=== PATIENT | female | born 1950 | race Caucasian/White ===

== ENCOUNTER 2017-08-15 08:22 | Day surgery (SDC) | payer OTHER ==
[2017-08-15] MEDS ORDERED: Ketorolac 30 MG/ML SDV IVPUSH ONE (08:23)
[2017-08-15] MEDS ORDERED: Glycopyrrolate 0.2 MG/ML 2 ML SDV IV ONE (08:23)
[2017-08-15] MEDS ORDERED: Rocuronium 50 MG/5 ML Vial IV ONE (08:23)
[2017-08-15] MEDS ORDERED: Ondansetron 4 MG/2 ML SDV IV ONE (08:23)
[2017-08-15] MEDS ORDERED: fentaNYL 100 MCG/2 ML SDV IV ONE (08:23)
[2017-08-15] MEDS ORDERED: Propofol 200 MG/20 ML SDV IV ONE (08:23)
[2017-08-15] MEDS ORDERED: Midazolam 1 MG/ML 2 ML SDV IV ONE (08:23)
[2017-08-15] MEDS ORDERED: Neostigmine Methylsulfate 10 MG/10 ML MDV IV ONE (08:23)
[2017-08-15] MEDS ORDERED: Lactated Ringers 1,000 ML IV SCH (08:45)
[2017-08-15] MEDS ORDERED: Morphine 2 MG/ML Syringe IVPUSH PRN (11:16)
[2017-08-15] MEDS ORDERED: Acetaminophen/oxyCODONE 325-5 MG Tab PO PRN (11:16)
[2017-08-15] MEDS ORDERED: Sodium Chloride 0.9% 10 ML Syringe FLUSH PRN (11:17)
[2017-08-15 14:50] VITALS: BP 132/62
--- NOTE | 2017-08-15 17:59 | PCM.SN ---
- Free Text/Narrative Note: Patient is stable after Laparoscopic cholecystectomy earlier today. Pain well controlled. PO adequate. Wounds clean. Requesting to go home. From my standpoint she is able to leave. Percocet 5/325 tabs #20 were given for pain. Will FU as needed.
--- NOTE | 2017-08-15 20:49 | OR ---
DATE: 08/15/2017 PREOPERATIVE DIAGNOSIS: Chronic cholecystitis, cholelithiasis. POSTOPERATIVE DIAGNOSIS: Chronic cholecystitis, cholelithiasis. PROCEDURE: Laparoscopic cholecystectomy ANESTHESIA: General. ESTIMATED BLOOD LOSS: Minimum. SPECIMEN: Gallbladder. INDICATION FOR PROCEDURE: This 67-year-old female has had several episodes of right upper quadrant abdominal pain and has recently had an ultrasound that demonstrated a diseased gallbladder with multiple stones. The ultrasound is otherwise unremarkable. DESCRIPTION OF PROCEDURE: After adequate preparation, a trocar was placed in the midclavicular line on the right side secondary to her having a section with a midline scar up to and including the umbilicus. This trocar site was used to insufflate the abdomen. A 5-mm camera was then placed within the abdomen. This did not show any adhesions around the umbilical area. A 2nd 5-mm trocar was placed in that area. Two other trocars were placed under direct vision without difficulty. The gallbladder was identified. This was non-thick, but did have a moderate amount of adhesions of the omentum around the gallbladder and also had a moderate amount of adhesions down around the Maverick pouch and cystic triangle structures. The cystic triangle was eventually dissected completely free to identify the cystic duct and cystic artery separately. A clip commercial carpenter was used to triply clip the cystic duct and then transect this. The artery was then transected and the proximal end was bovied for hemostatic control. The gallbladder was then taken off the liver bed using a blunt, sharp, and Bovie dissection. There was no evidence of perforation of the gallbladder and only minimal bleeding from the gallbladder bed. The right upper quadrant was then irrigated with saline and suctioned clear. The gallbladder was placed within the retrieval bag and brought out through the epigastric trocar site. This fascial defect was then re-closed using an 0 Vicryl suture. The abdomen was desufflated. The trocars were removed and the skin closed with Monocryl. The patient was taken to recovery room in good condition. [facility] /[id number]
== END 2017-08-15 16:20 | disposition home or self-care (01) ==
LOC: DL.SDS 08:22 → EDSTATUS 10:00 → DL.SDS 16:20
PROVIDERS: ATTEND Surgery
DX: K81.1 Chronic cholecystitis (principal); F41.8 Other specified anxiety disorders; E11.9 Type 2 diabetes mellitus without complications; E78.5 Hyperlipidemia, unspecified; K21.9 Gastro-esophageal reflux disease without esophagitis; I10 Essential (primary) hypertension; Z88.1 Allergy status to other antibiotic agents; Z88.8 Allergy status to other drugs, medicaments and biological substances; Z87.891 Personal history of nicotine dependence
CPT/HCPCS: 82962; A9270-GY; J1885; J2250; J2405; J2704; J2710; J3010; J3490; J7120

== ENCOUNTER 2021-03-06 03:01 | Emergency (ER) | payer MEDICARE, OTHER ==
[2021-03-06] MEDS ORDERED: Benzonatate 100 MG Cap PO ONE (03:02)
[2021-03-06 04:12] LABS: CORONAVIRUS COVID-19 NAA POSITIVE (NEGATIVE)
[2021-03-06 04:37] VITALS: PULSE 88
[2021-03-06 05:21] LABS: ANION GAP 15.2 mEq/L (7-13); CHLORIDE,CL 100 mmol/L (98-107); SODIUM,NA 138 mmol/L (136-145)
[2021-03-06] MEDS ORDERED: Azithromycin 250 MG Tab PO ONE (05:23)
[2021-03-06] MEDS ORDERED: Polymyxin B/Trimethoprim 10 ML Bottle ONE (06:00)
[2021-03-06] MEDS ORDERED: Benzonatate 100 MG Cap ONE (06:00)
--- NOTE | 2021-03-06 06:11 | CR ---
PROCEDURE INFORMATION: Exam: XR Chest Exam date and time: 03/06/2021 5:31 AM Age: 70 years old Clinical indication: Other: Initial dx late January, not improving; Additional info: Covid TECHNIQUE: Imaging protocol: XR of the chest. Views: 1 view. COMPARISON: CR CHEST PA/LAT 12/06/2010 11:08 AM FINDINGS: Lungs: Subtle increased interstitial markings are seen in the mid and lower hemithoraces suggesting a mild bilateral interstitial pneumonitis. Pleural spaces: Unremarkable. No pleural effusion. No pneumothorax. Heart/Mediastinum: Unremarkable. No cardiomegaly. Bones/joints: Unremarkable. IMPRESSION: Subtle increased interstitial markings in the left mid and lower hemithoraces suggest a mild bilateral interstitial pneumonitis.
--- NOTE | 2021-03-06 06:14 | EDM.PDOC ---
ED HPI GENERAL MEDICAL PROBLEM - General Chief Complaint: ENT Problem Stated Complaint: 97.2*, CONGESTED, RIGHT EYE SWALLON, BOTH EARS Time Seen by Provider: 03/06/21 03:30 Source of Information: Reports: Patient History Limitations: Reports: No Limitations - History of Present Illness INITIAL COMMENTS - FREE TEXT/NARRATIVE: ED with c/o continued cough right ear pain and tonight woke with discharge and irritation right eye. Diagnosed with COVID in January. Has fatigue. Blood sugars up and down, Poor appetite. Admits some depression, stress reaction due to recent loss of son and grandson in car accident. Not sleeping, unsure if anxiety/stress or from coughing. Has tried muccinex. Cough productive green phlegm Right Eye Pain Score (Numeric/FACES): 4 - Related Data Allergies Allergy/AdvReac Type Severity Reaction Status Date / Time cephalexin Allergy Swelling Verified 03/06/21 03:33 Jnnraeo-AYE-YoV Reductase Allergy Muscle Verified 03/06/21 03:33 Inhibitor Aches [Ulaimmt-Zzc-Kmo Reductase Inhibitor] Home Meds: Home Meds Hydrochlorothiazide/Lisinopril [Lisinopril/HCTZ 20-12.5 MG] 1.5 tab PO DAILY 01/05/16 [History] Insulin Aspart [NovoLOG] 8 - 12 units SUBCUT TID 01/05/16 [History] Pen Needle, Diabetic [Ultra-Fine Cristy Pen Needle] 1 unit SQ QID 01/05/16 [History] Sertraline [Zoloft] 25 mg PO DAILY 01/05/16 [History] metFORMIN HCl [Metformin HCl] 1,000 mg PO BID 01/05/16 [History] Aspirin [Ecotrin EC] 1 tab PO DAILY 08/14/17 [History] Insulin Detemir [Levemir] 45 units SQ BEDTIME 08/14/17 [History] Omeprazole 1 tab PO DAILY 08/14/17 [History] Potassium 1 tab PO DAILY 08/14/17 [History] amLODIPine [Norvasc] 03/06/21 [History] Past Medical History HEENT History: Reports: None Cardiovascular History: Reports: High Cholesterol, Hypertension Respiratory History: Reports: None Gastrointestinal History: Reports: GERD Genitourinary History: Reports: None 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: , Spontaneous Musculoskeletal History: Reports: None Neurological History: Reports: Migraines Psychiatric History: Reports: Depression Endocrine/Metabolic History: Reports: Diabetes, Type II Hematologic History: Reports: Anemia Immunologic History: Reports: None Oncologic (Cancer) History: Reports: None Dermatologic History: Reports: None - Infectious Disease History Infectious Disease History: Reports: Chicken Pox, Measles, Mumps - Past Surgical History Head Surgeries/Procedures: Reports: None HEENT Surgical History: Reports: Cataract Surgery Cardiovascular Surgical History: Reports: None GI Surgical History: Reports: Colonoscopy Female Surgical History: Reports: Breast Biopsy, Section, D&C, Tubal Ligation Neurological Surgical History: Reports: None Musculoskeletal Surgical History: Reports: None Social & Family History - Family History Family Medical History: No Pertinent Family History - Tobacco Use Tobacco Use Status *Q: Never Tobacco User - Caffeine Use Caffeine Use: Reports: Soda Caffeine Use Comment: 1 can daily - Recreational Drug Use Recreational Drug Use: No ED ROS GENERAL - Review of Systems Review Of Systems: Comprehensive ROS is negative, except as noted in HPI. ED EXAM, GENERAL - Physical Exam Exam: See Below Exam Limited By: No Limitations General Appearance: Alert, Mild Distress Eye Exam: Bilateral Eye: Conjunctival Injection (greater right with yellow purulent discharge), EOMI, PERRL Ears: Normal External Exam. No: Normal TMs (fluid right) Nose: Normal Inspection Throat/Mouth: Normal Inspection Head: Atraumatic, Normocephalic Neck: Normal Inspection Respiratory/Chest: No Respiratory Distress, Decreased Breath Sounds, Other (coarse loose cough) Cardiovascular: Normal Peripheral Pulses, Regular Rate, Rhythm GI/Abdominal: Normal Bowel Sounds, Soft Extremities: Normal Inspection, Normal Range of Motion Neurological: Alert, Oriented, Normal Cognition Psychiatric: Tearful Skin Exam: Warm, Dry, Intact, Normal Color Course - Vital Signs Last Recorded V/S: Last Vital Signs Temp 98 F 03/06/21 04:36 Pulse 88 03/06/21 04:36 Resp 20 03/06/21 04:36 BP 160/68 H 03/06/21 04:36 Pulse Ox 95 03/06/21 04:36 - Orders/Labs/Meds Orders: Active Orders 24 hr Category Date Time Status PH,VENOUS [BG] Stat Lab 03/06/21 04:34 Ordered Labs: Laboratory Tests 03/06/21 03/06/21 03/06/21 Range/Units 03:20 04:50 04:50 WBC 9.9 (5.0-10.0) 10^3/uL RBC 3.97 L (4.2-5.4) 10^6/uL Hgb 11.9 L (12.0-16.0) g/dL Hct 35.8 L (37.0-47.0) % MCV 90.2 D (80-100) fL MCH 30.0 (27.0-34.0) pg MCHC 33.2 (33.0-35.0) g/dL Plt Count 237 (150-450) 10^3/uL Neut % (Auto) 69.3 (42.2-75.2) % Lymph % (Auto) 15.1 L (20.5-50.1) % Sequoyah % (Auto) 9.8 H (2-8) % Eos % (Auto) 5.1 H (1.0-3.0) % Baso % (Auto) 0.7 (0.0-1.0) % D-Dimer, Quantitative 402 H (0-400) ng/mL Sodium (136-145) mmol/L Potassium (3.5-5.1) mmol/L Chloride (98-107) mmol/L Carbon Dioxide (21-32) mmol/L Anion Gap (7-13) mEq/L BUN (7-18) mg/dL Creatinine (0.55-1.02) mg/dL Est Cr Clr Drug Dosing Estimated GFR (MDRD) BUN/Creatinine Ratio (No establ ref range) Glucose (70-99) mg/dL Lactic Acid (0.4-2.0) mmol/L Calcium (8.5-10.1) mg/dL Total Bilirubin (0.2-1.0) mg/dL AST (15-37) U/L ALT (14-59) U/L Alkaline Phosphatase (46-116) U/L C-Reactive Protein (0.0-0.9) mg/dL Total Protein (6.4-8.2) g/dL Albumin (3.4-5.0) g/dL Globulin Albumin/Globulin Ratio Ketones Influenza Type A RNA Negative (NEGATIVE) Influenza Type B RNA Negative (NEGATIVE) SARS-CoV-2 RNA (JOSE) Positive H (NEGATIVE) 03/06/21 03/06/21 Range/Units 04:50 04:50 WBC (5.0-10.0) 10^3/uL RBC (4.2-5.4) 10^6/uL Hgb (12.0-16.0) g/dL Hct (37.0-47.0) % MCV (80-100) fL MCH (27.0-34.0) pg MCHC (33.0-35.0) g/dL Plt Count (150-450) 10^3/uL Neut % (Auto) (42.2-75.2) % Lymph % (Auto) (20.5-50.1) % Sequoyah % (Auto) (2-8) % Eos % (Auto) (1.0-3.0) % Baso % (Auto) (0.0-1.0) % D-Dimer, Quantitative (0-400) ng/mL Sodium 138 (136-145) mmol/L Potassium 4.2 (3.5-5.1) mmol/L Chloride 100 (98-107) mmol/L Carbon Dioxide 27 (21-32) mmol/L Anion Gap 15.2 H (7-13) mEq/L BUN 11 (7-18) mg/dL Creatinine 0.82 (0.55-1.02) mg/dL Est Cr Clr Drug Dosing TNP Estimated GFR (MDRD) > 60 BUN/Creatinine Ratio 13.4 (No establ ref range) Glucose 238 H (70-99) mg/dL Lactic Acid 1.4 (0.4-2.0) mmol/L Calcium 8.4 L (8.5-10.1) mg/dL Total Bilirubin 0.4 (0.2-1.0) mg/dL AST 14 L (15-37) U/L ALT 26 (14-59) U/L Alkaline Phosphatase 75 (46-116) U/L C-Reactive Protein 4.3 H (0.0-0.9) mg/dL Total Protein 6.7 (6.4-8.2) g/dL Albumin 3.1 L (3.4-5.0) g/dL Globulin 3.6 Albumin/Globulin Ratio 0.86 Ketones Negative Influenza Type A RNA (NEGATIVE) Influenza Type B RNA (NEGATIVE) SARS-CoV-2 RNA (JOSE) (NEGATIVE) Meds: Medications Discontinued Medications Generic Name Dose Route Start Last Admin Trade Name Freq PRN Reason Stop Dose Admin Azithromycin 500 mg 03/06/21 05:23 03/06/21 05:40 Azithromycin 250 Mg Tab PO 03/06/21 05:24 500 mg ONETIME ONE Administration Benzonatate Confirm 03/06/21 06:00 Benzonatate 100 Mg Cap Administered 03/06/21 06:01 Dose 200 mg .ROUTE .STK-MED ONE Polymyxin/Trimethoprim Sulfate Confirm 03/06/21 06:00 Polymyxin B/Trimethoprim 10 Ml Bottle Administered 03/06/21 06:01 Dose 10 ml .ROUTE .STK-MED ONE Departure - Departure Time of Disposition: 06:09 Disposition: Home, Self-Care 01 Condition: Good Clinical Impression: Hyperglycemia, COVID-19, Grief Conjunctivitis Qualifiers: Conjunctivitis type: acute Acute conjunctivitis type: unspecified Laterality: bilateral Qualified Code(s): H10.33 - Unspecified acute conjunctivitis, bilateral - Discharge Information *PRESCRIPTION DRUG MONITORING PROGRAM REVIEWED*: No *COPY OF PRESCRIPTION DRUG MONITORING REPORT IN PATIENT NORBERT: No Instructions: COVID-19 Vaccine Information, 10 Things You Can Do to Manage Your COVID-19 Symptoms at Home - [facility] (11/20/2020) Forms: ED Department Discharge Additional Instructions: polytrim eye drops 2 drops to each eye 4 times daily for 5 days tessalon pearles 200mg every 8 hours as needed for cough Azithromycin 250mg one daily for 4 days phenergan with codeine 5ml every 6 hours as needed for severe cough symptoms izofran 4mg ODT one every 4 hours as needed for nsusea increase fluids continue muccinex humidification gently wipe eyes inner to outer clinic follow up next week Sepsis Event Note (ED) - Focused Exam Vital Signs: Vital Signs Temp Pulse Resp BP BP Pulse Ox 03/06/21 04:36 98 F 88 20 160/68 H 95 03/06/21 03:15 98.9 F 92 22 H 172/109 H 96 - My Orders Last 24 Hours: My Active Orders 03/06/21 04:34 PH,VENOUS [BG] Stat - Assessment/Plan Last 24 Hours: My Active Orders 03/06/21 04:34 PH,VENOUS [BG] Stat
[2021-03-06 07:03] VITALS: BP 152/72
== END 2021-03-06 06:25 | disposition home or self-care (01) ==
LOC: DL.ED 03:01
DX: U07.1 COVID-19 (principal); H10.33 Unspecified acute conjunctivitis, bilateral; F43.21 Adjustment disorder with depressed mood; E11.65 Type 2 diabetes mellitus with hyperglycemia; I10 Essential (primary) hypertension; K21.9 Gastro-esophageal reflux disease without esophagitis; Z88.1 Allergy status to other antibiotic agents; Z88.8 Allergy status to other drugs, medicaments and biological substances; Z79.4 Long term (current) use of insulin; Z79.82 Long term (current) use of aspirin; Z79.899 Other long term (current) drug therapy
CPT/HCPCS: 0240U; 36415; 71045; 80053; 82009; 83605; 85025; 85379; 86140; 99283; A9270

== ENCOUNTER 2022-08-18 01:35 | Emergency (ER) | payer MEDICARE, OTHER ==
[2022-08-18 01:40] VITALS: BP 189/76; PULSE 103
[2022-08-18] MEDS ORDERED: diphenhydrAMINE 50 MG/ML SDV IVPUSH ONE (01:40)
[2022-08-18] MEDS ORDERED: methylPREDNISolone Sodium Succinate 125 MG/2 ML SDV IVPUSH ONE (01:40)
[2022-08-18] MEDS ORDERED: EPINEPHrine 1 MG/ML SDV IM ONE (02:54)
== END 2022-08-18 03:48 | disposition home or self-care (01) ==
LOC: DL.ED 01:35
DX: T78.3XXA Angioneurotic edema, initial encounter (principal); K21.9 Gastro-esophageal reflux disease without esophagitis; I10 Essential (primary) hypertension; E11.9 Type 2 diabetes mellitus without complications; Z79.82 Long term (current) use of aspirin; Z79.899 Other long term (current) drug therapy; Z79.4 Long term (current) use of insulin; Z88.1 Allergy status to other antibiotic agents; Z88.8 Allergy status to other drugs, medicaments and biological substances
CPT/HCPCS: 96372; 96374; 96375; 99283; 99284-25; J0171; J1200; J2930

== ENCOUNTER 2024-04-25 17:12 | Emergency (ER) | payer MEDICARE, OTHER ==
[2024-04-25 18:04] VITALS: BP 174/73
[2024-04-25] MEDS: Clindamycin HCl 150 MG Cap PO ONE (19:15)
[2024-04-25 19:23] VITALS: PULSE 72
== END 2024-04-25 19:17 | disposition home or self-care (01) ==
LOC: DL.ED 17:12
DX: M25.612 Stiffness of left shoulder, not elsewhere classified (principal); L03.114 Cellulitis of left upper limb; I10 Essential (primary) hypertension; K21.9 Gastro-esophageal reflux disease without esophagitis; E11.9 Type 2 diabetes mellitus without complications; Z88.1 Allergy status to other antibiotic agents; Z88.8 Allergy status to other drugs, medicaments and biological substances; Z79.4 Long term (current) use of insulin; Z79.84 Long term (current) use of oral hypoglycemic drugs; Z79.82 Long term (current) use of aspirin; Z79.899 Other long term (current) drug therapy; W00.0XXA Fall on same level due to ice and snow, initial encounter
CPT/HCPCS: 73030; 99283; A9270; 99284